=== PATIENT | male | born 1965 | race Caucasian/White ===

== ENCOUNTER 2016-12-31 00:46 | Emergency (ER) | payer MEDICAID ==
[~2016-12-31] VITALS: Ht 177.8 cm; Wt 88.5 kg
[~2016-12-31 00:46] MED LIST: [UNRECOGNIZED DRUG - REMARK]
[2016-12-31] MEDS ORDERED: CLINDAMYCIN PMX 900MG/50ML 50 ML IV ONE (01:30)
[2016-12-31] MEDS ORDERED: SODIUM CHLORIDE FLUSH 10ML SYR IVF ONE (01:30)
[2016-12-31] MEDS ORDERED: SODIUM CHLORIDE 0.9% 1,000ML IVBOLUS ONE (01:30)
[2016-12-31] MEDS ORDERED: CLINDAMYCIN PMX 900MG/50ML 0 ML ONE (01:32)
[2016-12-31 01:34] VITALS: BP 122/87
[2016-12-31] MEDS ORDERED: LISI-167 PO (01:38)
[2016-12-31 01:45] LABS: BLOOD UREA NITROGEN 21 mg/dL (7-18)
[2016-12-31] MEDS ORDERED: CLINDAMYCIN 150 MG/ML, 6ML IM ONE (02:00)
[2016-12-31 02:05] LABS: HEMOGLOBIN 16.8 g/dL (13.7-18.0)
== END 2016-12-31 02:35 | disposition home or self-care (01) ==
LOC: ED 02:00
DX: L03.114 Cellulitis of left upper limb (principal); F15.10 Other stimulant abuse, uncomplicated; I10 Essential (primary) hypertension; Z88.8 Allergy status to other drugs, medicaments and biological substances
CPT/HCPCS: 36415; 80048; 82040; 85025; 96372

== ENCOUNTER 2018-01-18 03:37 | Emergency (ER) | payer MEDICAID ==
[~2018-01-18] VITALS: Ht 177.8 cm; Wt 88.9 kg
[~2018-01-18 03:37] MED LIST changes: +LISI-167 PO
[2018-01-18 03:38] VITALS: BP 124/66
[2018-01-18] MEDS ORDERED: LIDOCAINE 1%, 10ML INFIL ONE (04:00)
[2018-01-18] MEDS ORDERED: LIDOCAINE-MPF 1%, 5ML ONE (04:01)
== END 2018-01-18 04:44 | disposition home or self-care (01) ==
LOC: ED 04:27
DX: L03.116 Cellulitis of left lower limb (principal); F17.200 Nicotine dependence, unspecified, uncomplicated; I10 Essential (primary) hypertension
CPT/HCPCS: 10060; 99284

== ENCOUNTER 2018-01-20 01:43 | Emergency (ER) | payer MEDICAID ==
[~2018-01-20] VITALS: Ht 177.8 cm; Wt 89.6 kg
[2018-01-20 01:44] VITALS: BP 145/95
== END 2018-01-20 03:27 | disposition home or self-care (01) ==
LOC: ED 02:26
DX: Z48.00 Encounter for change or removal of nonsurgical wound dressing (principal); I10 Essential (primary) hypertension
CPT/HCPCS: 99281

== ENCOUNTER 2018-02-06 10:21 | Emergency (ER) | payer MEDICAID | END 2018-02-06 10:44 | LOC: ED 10:38 | DX: M79.604 Pain in right leg (principal); Z53.21 Procedure and treatment not carried out due to patient leaving prior to being seen by health care provider ==

== ENCOUNTER 2018-07-05 18:49 | Emergency (ER) | payer MEDICAID ==
[~2018-07-05] VITALS: Ht 177.8 cm; Wt 88.0 kg
[2018-07-05 19:03] VITALS: BP 135/93
== END 2018-07-05 19:47 | disposition home or self-care (01) ==
LOC: ED 19:30
DX: K08.89 Other specified disorders of teeth and supporting structures (principal); I10 Essential (primary) hypertension; F17.200 Nicotine dependence, unspecified, uncomplicated
CPT/HCPCS: 99283

== ENCOUNTER 2019-04-19 04:47 | Emergency (ER) | payer MEDICAID ==
[~2019-04-19] VITALS: Ht 177.8 cm; Wt 87.0 kg
[2019-04-19 04:49] VITALS: BP 126/92
== END 2019-04-19 06:00 | disposition home or self-care (01) ==
LOC: ED 05:18
DX: L02.414 Cutaneous abscess of left upper limb (principal)
CPT/HCPCS: 10060; 99283; J3490

== ENCOUNTER 2019-04-22 00:04 | Emergency (ER) | payer MEDICAID ==
[~2019-04-22] VITALS: Ht 177.8 cm; Wt 87.6 kg
[2019-04-22 00:51] VITALS: BP 119/76
--- NOTE | 2019-04-22 00:54 | NUR ---
WOUND CLEANED BY PA. DRY DRSNG PLACED ON THE PT PER THE VERBAL ORDER OF THE PA.
== END 2019-04-22 00:56 | disposition home or self-care (01) ==
LOC: ED 00:32
DX: Z48.01 Encounter for change or removal of surgical wound dressing (principal); F17.210 Nicotine dependence, cigarettes, uncomplicated; I10 Essential (primary) hypertension; E11.9 Type 2 diabetes mellitus without complications
CPT/HCPCS: 99283

== ENCOUNTER 2020-02-29 00:30 | Emergency (ER) | payer MEDICAID ==
[~2020-02-29] VITALS: Ht 177.8 cm; Wt 92.4 kg
[2020-02-29 00:43] VITALS: BP 126/87
[2020-02-29] MEDS ORDERED: CEPHALEXIN 500 MG CAPSULE PO ONE (01:30)
[2020-02-29] MEDS ORDERED: SULFAMETH./TRIMETHOPRIM DS 800MG/160MG TABLET PO ONE (01:30)
[2020-02-29] MEDS ORDERED: CEPHALEXIN 500 MG CAPSULE ONE (01:33)
[2020-02-29] MEDS ORDERED: SULFAMETH./TRIMETHOPRIM DS 800MG/160MG TABLET ONE (01:33)
== END 2020-02-29 01:45 | disposition home or self-care (01) ==
LOC: ED 01:00
DX: L03.116 Cellulitis of left lower limb (principal); I10 Essential (primary) hypertension; E11.9 Type 2 diabetes mellitus without complications; F17.210 Nicotine dependence, cigarettes, uncomplicated
CPT/HCPCS: 99283; 99406

== ENCOUNTER 2020-07-23 17:39 | Emergency (ER) | payer MEDICAID ==
[~2020-07-23] VITALS: Ht 177.8 cm; Wt 90.2 kg
[2020-07-23 17:40] VITALS: BP 139/99
--- NOTE | 2020-07-23 17:54 | NUR ---
MECHANICAL TEST ENGINEER CARDIOLOGY CALLED @ 175
[2020-07-23] MEDS ORDERED: ASPIRIN 81 MG TABLET CHEW PO ONE (18:00)
--- NOTE | 2020-07-23 18:04 | NUR ---
SETTER COLD ROLLING MACHINE CARDIOLOGY CALLED BACK @[id number]
[2020-07-23 18:07] LABS: BASOPHILS % (AUTO) 2 % (0-1); EOSINOPHILS % (AUTO) 1 % (1-7); LYMPHOCYTES % (AUTO) 34 % (22-44); MEAN CORPUSCULAR HEMOGLOBIN 29.9 pg (27.5-34.5); MEAN CORPUSCULAR HGB CONC 33.4 g/dL (33.2-36.2); MEAN PLATELET VOLUME 8.9 fL (7.4-10.4); MONOCYTES % (AUTO) 9 % (2-9); NEUTROPHILS % (AUTO) 54 % (42-75); PLATELET COUNT 224 x10^3/uL (130-400); RED BLOOD COUNT 5.92 x10^6/uL (4.38-5.82); RED CELL DISTRIBUTION WIDTH 12.9 % (9.4-14.8)
[2020-07-23 18:08] LABS: MD NO
[2020-07-23 18:18] LABS: ALANINE AMINOTRANSFERASE 41 U/L (12-78); ALBUMIN 3.9 g/dL (3.4-5.0); ANION GAP 2 mmol/L (5-15); CALCIUM 9.4 mg/dL (8.5-10.1); CHLORIDE 110 mmol/L (98-107)
[2020-07-23 18:22] LABS: ALKALINE PHOSPHATASE 112 U/L (45-117); BILIRUBIN,TOTAL 0.4 mg/dL (0.2-1.0); TOTAL PROTEIN 7.4 g/dL (6.4-8.2)
[2020-07-23] MEDS ORDERED: ASPIRIN 81 MG TABLET CHEW ONE (18:22)
[2020-07-23 18:28] LABS: TROPONIN I 0.919 ng/mL (0.000-0.045)
--- NOTE | 2020-07-23 18:35 | NUR ---
LAB CALLED WITH CRITICAL TROPONIN OF 0.919. ERP NOTIFIED. PT UPDATED ON PLAN FOR ADMISSION. SPO2 91-93% ON RA; PT PLACED ON 1.5L NC, SPO2 INCREASED TO 95%. PT STATES CHEST PAIN DOWN TO 3/10 NOW (WAS WORSE EARLIER TODAY). REPORTS LAST METH USE LAST NIGHT.
--- NOTE | 2020-07-23 18:50 | NUR ---
WENT IN TO PLACE PIV FOR CTA, BUT PT STATED, "I WANT GO HOME, I DON'T WANT TO STAY HERE ANOTHER MINUTE". PT AWARE THAT HE MAY BE HAVING, OR HAVE HAD, A HEART ATTACK. UNABLE TO FIND ERP TO NOTIFY HER. ADMITTING MD IN TO SEE PT. PT ALSO TELLING ADMITTING MD THAT HE WANTS TO LEAVE AND REFUSING IV INSERT AT THIS TIME.
[2020-07-23] MEDS ORDERED: METOPROLOL 1 MG/ML, 5ML IVPush PRN (19:00)
[2020-07-23] MEDS ORDERED: ONDANSETRON 2MG/ML, 2ML IVPush PRN (19:00)
[2020-07-23] MEDS ORDERED: NITROGLYCERIN SINGLE TAB 0.4 MG SL PRN ×2 (19:00)
[2020-07-23] MEDS ORDERED: LABETALOL 5MG/ML, 20ML IVPush PRN (19:00)
[2020-07-23] MEDS ORDERED: HEPARIN 25,000 UNITS/250ML PMX 250 ML IV PRN (19:00)
[2020-07-23] MEDS ORDERED: morphine SULFATE 10 MG/ML, 1ML IV PRN (19:00)
[2020-07-23] MEDS ORDERED: MORPHINE SULFATE 4 MG/ML, 1ML IVPush PRN (19:00)
[2020-07-23] MEDS ORDERED: DOCUSATE 100 MG CAPSULE PO PRN (19:00)
--- NOTE | 2020-07-23 19:20 | NUR ---
ERP WAS IN TO SPEAK WITH PT ABOUT STAYING IN THE HOSPITAL. REPORTED TO JEREMIAH CORONADO.
[2020-07-23] MEDS ORDERED: HEPARIN 5,000 UNITS/ML, 1ML IV ONE (19:30)
[2020-07-23] MEDS ORDERED: HEPARIN 5,000 UNITS/ML, 1ML IV PRN (19:30)
--- NOTE | 2020-07-23 19:56 | NUR ---
PT SAID HE DOES NOT WANT TO BE ADMITED AND WANTED TO GO HOME, PROVIDER WENT OVER NEGITIVES UP TO OF LEAVING HOSPITAL AMA WITHOUT THE TREATMENTS. PT STATED"IT IS HIS LIFE AND IF HE DIES HE DIES" PT SIGNED AMA PAPPERWORK AND THANKED STAFF AND LEFT ER
[2020-07-23] MEDS ORDERED: AZITHROMYCIN 500 MG in SODIUM CHLORIDE 0.9% 250 ML IV ONE (20:00)
[2020-07-23 20:38] LABS: C-REACTIVE PROTEIN, QUANT 0.13 mg/dL (0.02-0.49)
[2020-07-23] MEDS ORDERED: ATORVASTATIN 80 MG TABLET PO SCH (21:00)
[2020-07-23] MEDS ORDERED: SODIUM CHLORIDE FLUSH 10ML SYR IVF SCH (21:00)
[2020-07-23] MEDS ORDERED: CEFTRIAXONE PMX 1GM/50ML 50 ML IVPB ONE (21:00)
[2020-07-24] MEDS ORDERED: ASPIRIN 325 MG TABLET EC PO SCH (06:00)
[2020-07-24] MEDS ORDERED: NICOTINE 14MG/24 HR PATCH.TD24 TD SCH (09:00)
[2020-07-24] MEDS ORDERED: LISINOPRIL 20 MG TABLET PO SCH (09:00)
== END 2020-07-23 20:03 | disposition left against medical advice (07) ==
LOC: ED 18:28 → UNDOADMIN 18:59 → EDIP 18:59 → ED 20:03
DX: I21.4 Non-ST elevation (NSTEMI) myocardial infarction (principal); Z11.59 Encounter for screening for other viral diseases; I10 Essential (primary) hypertension; K21.9 Gastro-esophageal reflux disease without esophagitis
CPT/HCPCS: 36415; 71045; 80053; 82728; 83615; 84484; 85025; 86140; 87635; 93005; 99285